=== PATIENT | female | born 1960 | race American Indian/Alaskan Native ===

== ENCOUNTER 2018-12-11 15:16 | Emergency (ER) | payer OTHER, SELFPAY ==
[2018-12-11 15:18] VITALS: BP 138/59; PULSE 70; RESP 18; TEMP 36.4; O2SAT 100; BMI 38.0
--- NOTE | 2018-12-11 15:21 | ED.CHESTPAIN ---
HPI - Chest Pain General Chief Complaint: Chest Pain Stated Complaint: chest pain Time Seen by Provider: 12/11/18 15:20 Source: patient Mode of arrival: EMS Limitations: no limitations History of Present Illness HPI narrative: Patient is a 58-year-old female here for evaluation of chest discomfort. Patient states that she has a history of reflux and also hiatal hernia and also Perez's esophagus. She is on a PPI. She has Zofran and a GI cocktail at home. She states that she has had quite a bit of anxiety recently. She states that that in the past has irritated her symptoms. She states that her symptoms today are consistent with her prior GI symptoms. She stated the Zofran and the GI cocktail improved her symptoms at home however she was feeling very anxious so she called 911 and brought her into the emergency depart no prior interventions except for an EKG for the symptoms prior to arrival. Related Data Home Medications Medication Instructions Recorded Confirmed albuterol sulfate [Ventolin HFA] 2 puff INH PRN #0 04/11/11 [QVAR AER HFA] 1 puff INH BID #0 12/04/16 [VITAMIN D3] 1,000 units PO QDAY #0 12/04/16 albuterol sulfate [Proventil HFA] 2 puff INH Q4H #0 12/04/16 gabapentin [Neurontin] 300 mg PO QDAY #0 12/04/16 loratadine 10 mg PO QDAY #0 12/04/16 nortriptyline 10 mg PO QDAY #0 12/04/16 ranitidine HCl [Zantac] 150 mg PO QDAY #0 12/04/16 Previous Rx's Medication Instructions Recorded oseltamivir [Tamiflu] 75 mg PO BID #10 cap 12/04/16 prednisone 0 PO QDAY #7 tab 12/04/16 diphenhydramine HCl [Benadryl 25 mg PO Q6HP PRN #30 tab 08/30/17 Allergy] nitrofurantoin monohyd/m-cryst 100 mg PO BID #10 cap 10/02/17 [Macrobid] phenazopyridine [Pyridium] 100 mg PO TID #12 tab 10/02/17 hydrocortisone acetate [Anusol-HC] 25 mg R BID PRN #14 supp 02/05/18 Allergies Allergy/AdvReac Type Severity Reaction Status Date / Time adhesive tape [ADHESIVE TAPE] Allergy Mild latex tape Unverified 03/03/18 11:58 codeine Allergy Mild Unverified 03/03/18 11:58 barium iodide [BARIUM IODIDE] Allergy Unknown GI ISSUES Unverified 03/03/18 11:58 latex [LATEX] Allergy Unknown Unverified 03/03/18 11:58 NSAIDS (Non-Steroidal Allergy Unknown Unverified 03/03/18 11:58 Anti-Inflamma [NSAIDS (NON-STEROIDAL ANTI-INFLAMMA] Review of Systems Constitutional Denies fever(s) Cardiovascular Reports chest pain and Denies dyspnea Respiratory Denies dyspnea Gastrointestinal Gastrointestinal: Reports abdominal pain, Reports diarrhea, Reports nausea and Reports vomiting Genitourinary Denies dysuria Musculoskeletal Denies myalgias and Denies arthralgias Integumentary/Breasts Denies lesions and Denies rash Neurologic Denies behavioral changes Psychiatric Reports anxiety and Denies behavioral changes Hematologic/Lymphatic Comments: Not on anticoagulation FOR[facility]LY [facility] Medical History Barretts esophagus (Acute) Gastroparesis (Acute) Hiatal hernia (Acute) Surgical History History of third molar tooth extraction Status post hernia repair Status post laparoscopic cholecystectomy Status post laparoscopic supracervical hysterectomy Social History Smoking Status: Former smoker Exam Initial Vital Signs Initial Vital Signs: Vital Signs Temperature 97.5 F L 12/11/18 15:18 Pulse Rate 70 12/11/18 15:18 Respiratory Rate 18 12/11/18 15:18 Blood Pressure 138/59 L 12/11/18 15:18 Pulse Oximetry 100 12/11/18 15:18 Const General: cooperative, healthy appearing, comfortable, well developed, well groomed and No acute distress Orientation: alert, awake and oriented x3 Resp Effort & Inspection: normal respiratory effort Auscultation: clear to auscultation bilaterally Cardio Rate: regular rate Rhythm: regular rhythm GI Inspection: non-distended Palpation: soft, No firm and No tender Skin Lesions: no lesions Rashes: no rashes Neuro General: alert, awake and oriented x3 Extrem General: normal to inspection and capillary refill normal Psych Appearance: grossly normal and well kempt Course Orders Ordered: ED Orders 12/11/18 15:21 EKG-12 Lead Stat 12/11/18 15:35 Complete Blood Count AUTO DIFF Stat Comprehensive Metabolic Panel Stat Lipase Stat Partial Thromboplastin Time Stat Prothrombin Time INR Stat Troponin & CK Cardiac Panel Stat 12/11/18 15:41 XR chest 1V Stat EKG-12 Lead Stat Vital Signs - 8 hr 12/11/18 15:18 12/11/18 16:00 Temperature 97.5 F L Pulse Rate 70 65 Respiratory Rate 18 21 Blood Pressure 138/59 L Blood Pressure [Left Arm] 133/57 L Pulse Oximetry 100 97 MDM - Chest Pain Lab Data Attestation: I reviewed the patient's lab results. Result diagrams: 12/11/18 15:35 12/11/18 15:35 Lab Results 12/11/18 12/11/18 12/11/18 Range/Units 15:35 15:35 15:35 WBC 7.3 (4.5-11.0) X10^3/uL RBC 4.95 (4.0-5.2) X10^6/uL Hgb 14.3 (12.0-16.0) g/dL Hct 42.5 (36-46) % MCV 85.9 (80-100) fL MCH 29.0 (26-34) PG MCHC 33.7 (30-36) % RDW 12.9 (11.6-14.8) % Plt Count 223 (150-400) X10^3/uL Neut % (Auto) 79.1 H (50-75) % Lymph % (Auto) 12.9 L (25-40) % Coal % (Auto) 6.6 (3-14) % Eos % (Auto) 0.8 L (2-4) % Baso % (Auto) 0.6 (0-2) % Neut # (Auto) 5700 (1217-8007) /uL Lymph # (Auto) 900 L (4101-5574) /uL Coal # (Auto) 500 (0-900) /uL Eos # (Auto) 100 (0-450) /uL Baso # (Auto) 0 (0-100) /uL PT 10.9 (10.1-12.7) SECONDS INR 0.9 (0.9-1.3) APTT 33 (26.4-36.2) SECONDS Sodium 143 (137-145) mmol/L Potassium 3.3 L (3.4-5.1) mmol/L Chloride 106 (98-107) mmol/L Carbon Dioxide 27 (22-32) mmol/L BUN 10 (7-17) mg/dL Creatinine 0.80 (0.52-1.04) mg/dL Estimated GFR > 60.0 (>60) mL/min BUN/Creatinine Ratio 12.5 (6-22) Glucose 113 H (70-100) mg/dL Calcium 9.1 (8.4-10.2) mg/dL Total Bilirubin 0.4 (0.2-1.3) mg/dL AST 20 (14-36) IU/L ALT 20 (9-52) IU/L Alkaline Phosphatase 100 (38-126) U/L Total Creatine Kinase 56 (30-135) U/L CK-MB (CK-2) TNP CK-MB (CK-2) Rel Index TNP Troponin I < 0.012 (0.01-0.034) ng/mL Total Protein 7.8 (6.3-8.2) g/dL Albumin 4.3 (3.5-5.0) g/dL Globulin 3.5 (1.7-4.1) g/dL Albumin/Globulin Ratio 1.2 (1.0-2.8) Lipase 178 (23-300) U/L Urine Dip Bedside Urine Glucose Negative Bedside Urine Bilirubin - Negative Bedside Urine Ketone - Negative Urine Specific [place] 1.010 Bedside Urine Occult Blood - Negative Bedside Urine pH 6.0 Bedside Urine Protein - Negative Bedside Urine Urobilinogen - Negative Bedside Urine Nitrite - Negative Bedside Urine Leukocytes - Negative Esterase Imaging Data Chest x-ray: Radiologist's impression: PROCEDURE: XR CHEST 1V INDICATIONS: chest pain TECHNIQUE: One view of the chest was acquired. COMPARISON: None. FINDINGS: Surgical changes and devices: None. Lungs and pleura: No pleural effusions or pneumothorax. Lungs are clear. Mediastinum: Mediastinal contours appear normal. Heart size is normal. Bones and chest wall: No suspicious bony lesions. Overlying soft tissues appear unremarkable. IMPRESSION: No acute cardiopulmonary findings. Dictated by: Kayla Ledbetter M.D. on 12/11/2018 at 15:56 Approved by: Kayla Ledbetter M.D. on 12/11/2018 at 15:57 ECG Data Attestation: I personally reviewed and interpreted this ECG as follows: Prior ECG tracings: available for review Interpretation: EMS EKG shows sinus rhythm heart rate is 77 normal axis Normal QRS No ST T wave changes Sinus rhythm Ventricular rate is 70 Normal axis Normal QRS No ST T wave changes Unchanged from pre-hospital EKG MDM Narrative Medical decision making narrative: Patient without vomiting here in the emergency department. She states her symptoms have improved. Labs unremarkable. Low suspicion for ACS. She does have nausea medication and a GI cocktail at home. She was given return precautions. Will hold on further workup for now. Patient was given return precautions. She expressed understanding and agreement with plan. Discharge Plan Departure Patient Disposition: Home Clinical Impression: Nausea & vomiting Instructions: Nausea and Vomiting-Adult Activity Restrictions/Additional Instructions: Continue all your medications as directed. Contact your primary care doctor for a follow-up. Return to the emergency department for any new or worsening symptoms Prescriptions: No Action albuterol sulfate [Ventolin HFA] 90 MCG/PUFF HFA aerosol inhaler 2 puff INH PRN Qty: 0 RF: 0 ranitidine HCl [Zantac] 150 MG tablet 150 mg PO QDAY Qty: 0 RF: 0 [VITAMIN D3] 1,000 units PO QDAY Qty: 0 RF: 0 nortriptyline 10 MG capsule 10 mg PO QDAY Qty: 0 RF: 0 gabapentin [Neurontin] 300 MG capsule 300 mg PO QDAY Qty: 0 RF: 0 loratadine 10 MG tablet 10 mg PO QDAY Qty: 0 RF: 0 albuterol sulfate [Proventil HFA] 90 MCG/PUFF HFA aerosol inhaler 2 puff INH Q4H Qty: 0 RF: 0 [QVAR AER HFA] 1 puff INH BID Qty: 0 RF: 0 oseltamivir [Tamiflu] 75 MG capsule 75 mg PO BID Qty: 10 RF: 0 prednisone 20 MG tablet PO QDAY Qty: 7 RF: 0 diphenhydramine HCl [Benadryl Allergy] 25 MG tablet 25 mg PO Q6HP PRNQty: 30 RF: 0 phenazopyridine [Pyridium] 100 MG tablet 100 mg PO TID Qty: 12 RF: 0 nitrofurantoin monohyd/m-cryst [Macrobid] 100 MG capsule 100 mg PO BID Qty: 10 RF: 0 hydrocortisone acetate [Anusol-HC] 25 MG suppository 25 mg R BID PRNQty: 14 RF: 0
--- NOTE | 2018-12-11 15:41 | DI.RAD.S_ITS ---
PROCEDURE: XR CHEST 1V INDICATIONS: chest pain TECHNIQUE: One view of the chest was acquired. COMPARISON: None. FINDINGS: Surgical changes and devices: None. Lungs and pleura: No pleural effusions or pneumothorax. Lungs are clear. Mediastinum: Mediastinal contours appear normal. Heart size is normal. Bones and chest wall: No suspicious bony lesions. Overlying soft tissues appear unremarkable. IMPRESSION: No acute cardiopulmonary findings. Dictated by: Kayla Ledbetter M.D. on 12/11/2018 at 15:56 Approved by: Kayla Ledbetter M.D. on 12/11/2018 at 15:57
[2018-12-11 15:49] LABS: Add Manual Diff / Slide Review NO; Basophils Absolute Auto 0 /uL (0-100); Basophils Percent Auto 0.6 % (0-2); Eosinophils Absolute Auto 100 /uL (0-450); Eosinophils Percent Auto 0.8 % (2-4); Hematocrit 42.5 % (36-46); Hemoglobin 14.3 g/dL (12.0-16.0); Lymphocytes Absolute Auto 900 /uL (1100-4500); Lymphocytes Percent Auto 12.9 % (25-40); Mean Corpuscular HGB Conc 33.7 % (30-36); Mean Corpuscular Volume 85.9 fL (80-100); Monocytes Absolute Auto 500 /uL (0-900); Monocytes Percent Auto 6.6 % (3-14); Neutrophils Absolute Auto 5700 /uL (1500-7000); Neutrophils Percent Auto 79.1 % (50-75); Platelet Count 223 X10^3/uL (150-400); Red Blood Cell Count 4.95 X10^6/uL (4.0-5.2); Red Cell Distribution Width 12.9 % (11.6-14.8); White Blood Cell Count 7.3 X10^3/uL (4.5-11.0)
[2018-12-11 15:50] LABS: INR 0.9 (0.9-1.3); Prothrombin Time 10.9 SECONDS (10.1-12.7)
[2018-12-11 15:52] LABS: PTT Partial Thromboplastin Tim 33 SECONDS (26.4-36.2)
[2018-12-11 15:55] LABS: Alanine Aminotransferase 20 IU/L (9-52); Albumin 4.3 g/dL (3.5-5.0); Albumin Globulin Ratio 1.2 (1.0-2.8); Alkaline Phosphatase 100 U/L (38-126); Aspartate Aminotransferase 20 IU/L (14-36); BUN Creatinine Ratio 12.5 (6-22); Bilirubin Total 0.4 mg/dL (0.2-1.3); Blood Urea Nitrogen 10 mg/dL (7-17); Calcium 9.1 mg/dL (8.4-10.2); Carbon Dioxide 27 mmol/L (22-32); Chloride 106 mmol/L (98-107); Creatine Kinase 56 U/L (30-135); Estimated Glomerular Filt Rate > 60.0 mL/min (>60); Globulin 3.5 g/dL (1.7-4.1); Glucose 113 mg/dL (70-100); HEMOLYSIS < 15 (0-50); Lipase 178 U/L (23-300); Potassium 3.3 mmol/L (3.4-5.1); Sodium 143 mmol/L (137-145); Total Protein 7.8 g/dL (6.3-8.2)
[2018-12-11 16:00] VITALS: BP 133/57; PULSE 65; RESP 21; O2SAT 97
[2018-12-11 16:07] LABS: Troponin I < 0.012 ng/mL (0.01-0.034)
[2018-12-11 17:56] VITALS: BP 119/57; PULSE 62; RESP 25; O2SAT 96
== END 2018-12-11 18:02 | disposition home or self-care (01) ==
PROVIDERS: Emergency Provider Emergency Medicine; Family Provider Physician Assistant; PCP Physician Assistant
DX: R11.2 Nausea with vomiting, unspecified (principal)
CPT/HCPCS: 36591; 71045; 80053; 81003; 82550; 83690; 84484; 85025; 85610; 85730; 93005; 99283; 99285

== ENCOUNTER 2018-12-27 16:23 | Emergency (ER) | payer OTHER, SELFPAY ==
--- NOTE | 2018-12-27 16:29 | ED_ITS ---
HPI - Abdominal Pain <HARPREET Juan - Last Filed: 12/27/18 22:04> General Chief Complaint: Chest Pain Stated Complaint: Back Px/ ABD Px/ Vomiting/ Diarhea Time Seen by Provider: 12/27/18 16:27 Source: patient and EMS Mode of arrival: EMS Limitations: no limitations History of Present Illness HPI narrative: 58-year-old female with history of irritable bowel and Perez's esophagus here for complaint of having abdominal pain mostly to the left lower quadrant radiating to the rate upper quadrant over the past several days. She also reports that she has had some diarrhea over the past 3 days. She does report that she has been in a stressful environment and is trying to move out at this contact time frame. She also feels like she may have been having urinary frequency. No dysuria. No flank pain. No fevers. Positive p.o. intake. No nausea vomiting. She denies any recent travel. She denies any recent antibiotic use. She is also reports having occasional chest pain which she had at last visit as well. No shortness of breath. Related Data Home Medications Medication Instructions Recorded Confirmed loratadine 10 mg PO DAILY #0 12/04/16 12/27/18 Lidocaine/Antacid/ 1 dose PO QID PRN 12/27/18 12/27/18 Tums 1 tab PO PRN PRN 12/27/18 12/27/18 azelastine 1 spray INTRANASAL DAILY 12/27/18 12/27/18 buspirone 7.5 mg PO BID 12/27/18 12/27/18 diphenhydramine HCl [Benadryl 25 mg PO BEDTIME PRN 12/27/18 12/27/18 Allergy] hydroxyzine pamoate 50 mg PO BEDTIME PRN 12/27/18 12/27/18 ondansetron 4 mg PO PRN PRN 12/27/18 12/27/18 pantoprazole 40 mg PO BID 12/27/18 12/27/18 pregabalin [Lyrica] 50 mg PO TID 12/27/18 12/27/18 propranolol 10 mg PO BID 12/27/18 12/27/18 sucralfate 1 dose PO BIDAC 12/27/18 12/27/18 Previous Rx's Medication Instructions Recorded ondansetron 4 mg PO BID-TID PRN #10 tab 12/27/18 Allergies Allergy/AdvReac Type Severity Reaction Status Date / Time adhesive tape [ADHESIVE TAPE] Allergy Mild latex tape Unverified 03/03/18 11:58 codeine Allergy Mild Unverified 03/03/18 11:58 barium iodide [BARIUM IODIDE] Allergy Unknown GI ISSUES Unverified 03/03/18 11: 58 latex [LATEX] Allergy Unknown Unverified 03/03/18 11:58 NSAIDS (Non-Steroidal Allergy Unknown Unverified 03/03/18 11:58 Anti-Inflamma [NSAIDS (NON-STEROIDAL ANTI-INFLAMMA] Review of Systems <HARPREET Juan - Last Filed: 12/27/18 22:04> Constitutional Denies chills, Denies fatigue, Denies fever(s), Denies lethargy and Denies weakness Eyes Denies change in vision, Denies eye discharge, Denies irritation and Denies loss of vision ENT Ears, Nose, Mouth, and Throat: Denies change in voice, Denies neck pain and Denies sore throat Cardiovascular Reports chest pain, Denies dyspnea and Denies dyspnea on exertion Respiratory Denies cough, Denies dyspnea, Denies dyspnea on exertion and Denies wheezing Gastrointestinal Gastrointestinal: Reports abdominal pain, Denies change in bowel habits, Reports diarrhea, Denies nausea and Denies vomiting Genitourinary Comments: Increased urinary frequency Musculoskeletal Denies neck pain Integumentary/Breasts Denies pruritus, Denies erythema, Denies rash and Denies wounds Neurologic Denies loss of vision and Denies weakness Endocrine Denies fatigue and Denies flushing Allergic/Immunologic Denies wheezing Exam <HARPREET Juan - Last Filed: 12/27/18 22:04> Initial Vital Signs Initial Vital Signs: Vital Signs Temperature 98.7 F 12/27/18 16:38 Pulse Rate 71 12/27/18 16:38 Respiratory Rate 18 12/27/18 16:38 Blood Pressure 102/47 L 12/27/18 16:38 Pulse Oximetry 98 12/27/18 16:38 Const General: cooperative and well developed Nutritional Appearance: well nourished Orientation: alert, awake, oriented x3 and not confused HENMT Face and sinus: dry mucous membranes Mouth: oral mucosae normal, oropharynx normal and moist mucous membranes Eyes Conjunctivae: conjunctivae normal Sclera: sclerae normal Pupils: PERRL EOM: EOM intact bilaterally Resp Effort & Inspection: normal respiratory effort, able to speak in complete sentences, no respiratory distress and no use of accessory muscles Auscultation: clear to auscultation bilaterally, no rales, no rhonchi and no wheezes Cardio Rate: regular rate Rhythm: regular rhythm Heart Sounds: no click, no gallops, no murmurs and no rubs GI Inspection: non-distended Palpation: soft, no hepatosplenomegaly, No guarding, No pulsatile mass and tender (Left lower quadrant) Auscultation: normal bowel sounds General: No CVA tenderness Skin General: no rashes or lesions noted, No jaundice and No petechiae Neuro General: alert, oriented x3, gait normal and no focal motor deficits Speech: speech normal <Maritza Ayala DO - Last Filed: 12/27/18 23:32> Initial Vital Signs Initial Vital Signs: Vital Signs Temperature 98.7 F 12/27/18 16:38 Pulse Rate 71 12/27/18 16:38 Respiratory Rate 18 12/27/18 16:38 Blood Pressure 102/47 L 12/27/18 16:38 Pulse Oximetry 98 12/27/18 16:38 Course <HARPREET Juan - Last Filed: 12/27/18 22:04> Orders Ordered: ED Orders 12/27/18 17:28 XR chest 1V Stat 12/27/18 17:50 Complete Blood Count AUTO DIFF Stat Comprehensive Metabolic Panel Stat Lipase Stat Troponin & CK Cardiac Panel Stat 12/27/18 18:49 CT abdomen pelvis w con Stat Discontinued Medications Sodium Chloride (Normal Saline 0.9%) 1,000 mls @ 150 mls/hr IV CONT GRISELDA Last Infusion: 12/27/18 20:48 Dose: 0 mls/hr Admin: 12/27/18 18:21 Dose: 150 mls/hr Lorazepam (Ativan) 1 mg IV NOW ONE Stop: 12/27/18 18:25 Last Admin: 12/27/18 18:56 Dose: 1 mg Ondansetron HCl (Zofran) 4 mg IV NOW ONE Stop: 12/27/18 18:25 Last Admin: 12/27/18 18:56 Dose: 4 mg Vital Signs - 8 hr 12/27/18 16:38 12/27/18 18:50 12/27/18 18:57 Temperature 98.7 F Pulse Rate 71 71 64 Respiratory Rate 18 27 H 20 Blood Pressure 102/47 L Blood Pressure [Left Arm] 87/55 L 137/60 Pulse Oximetry 98 100 12/27/18 20:06 12/27/18 20:48 Temperature Pulse Rate 57 L 66 Respiratory Rate 20 18 Blood Pressure Blood Pressure [Left Arm] 126/52 L 121/56 L Pulse Oximetry 98 <Maritza Ayala DO - Last Filed: 12/27/18 23:32> Orders Ordered: ED Orders 12/27/18 17:28 XR chest 1V Stat 12/27/18 17:50 Complete Blood Count AUTO DIFF Stat Comprehensive Metabolic Panel Stat Lipase Stat Troponin & CK Cardiac Panel Stat 12/27/18 18:49 CT abdomen pelvis w con Stat Discontinued Medications Sodium Chloride (Normal Saline 0.9%) 1,000 mls @ 150 mls/hr IV CONT GRISELDA Last Infusion: 12/27/18 20:48 Dose: 0 mls/hr Admin: 12/27/18 18:21 Dose: 150 mls/hr Lorazepam (Ativan) 1 mg IV NOW ONE Stop: 12/27/18 18:25 Last Admin: 12/27/18 18:56 Dose: 1 mg Ondansetron HCl (Zofran) 4 mg IV NOW ONE Stop: 12/27/18 18:25 Last Admin: 12/27/18 18:56 Dose: 4 mg Vital Signs - 8 hr 12/27/18 16:38 12/27/18 18:50 12/27/18 18:57 Temperature 98.7 F Pulse Rate 71 71 64 Respiratory Rate 18 27 H 20 Blood Pressure 102/47 L Blood Pressure [Left Arm] 87/55 L 137/60 Pulse Oximetry 98 100 12/27/18 20:06 12/27/18 20:48 Temperature Pulse Rate 57 L 66 Respiratory Rate 20 18 Blood Pressure Blood Pressure [Left Arm] 126/52 L 121/56 L Pulse Oximetry 98 MDM - Abdominal Pain <HARPREET Juan - Last Filed: 12/27/18 22:04> Lab Data Result diagrams: 12/27/18 17:50 12/27/18 17:50 Lab Results 12/27/18 12/27/18 Range/Units 17:50 17:50 WBC 9.0 (4.5-11.0) X10^3/uL RBC 4.79 (4.0-5.2) X10^6/uL Hgb 14.0 (12.0-16.0) g/dL Hct 41.3 (36-46) % MCV 86.3 (80-100) fL MCH 29.2 (26-34) PG MCHC 33.8 (30-36) % RDW 13.1 (11.6-14.8) % Plt Count 230 (150-400) X10^3/uL Neut % (Auto) 81.8 H (50-75) % Lymph % (Auto) 12.0 L (25-40) % [place] % (Auto) 5.4 (3-14) % Eos % (Auto) 0.5 L (2-4) % Baso % (Auto) 0.3 (0-2) % Neut # (Auto) 7400 H (8328-2618) /uL Lymph # (Auto) 1100 (3986-8022) /uL Harrison # (Auto) 500 (0-900) /uL Eos # (Auto) 0 (0-450) /uL Baso # (Auto) 0 (0-100) /uL Sodium 141 (137-145) mmol/L Potassium 3.5 (3.4-5.1) mmol/L Chloride 106 (98-107) mmol/L Carbon Dioxide 29 (22-32) mmol/L BUN 11 (7-17) mg/dL Creatinine 0.70 (0.52-1.04) mg/dL Estimated GFR > 60.0 (>60) mL/min BUN/Creatinine Ratio 15.7 (6-22) Glucose 110 H (70-100) mg/dL Calcium 9.1 (8.4-10.2) mg/dL Total Bilirubin 0.5 (0.2-1.3) mg/dL AST 21 (14-36) IU/L ALT 26 (9-52) IU/L Alkaline Phosphatase 105 (38-126) U/L Total Creatine Kinase 35 (30-135) U/L CK-MB (CK-2) TNP CK-MB (CK-2) Rel Index TNP Troponin I < 0.012 (0.01-0.034) ng/mL Total Protein 7.4 (6.3-8.2) g/dL Albumin 4.0 (3.5-5.0) g/dL Globulin 3.4 (1.7-4.1) g/dL Albumin/Globulin Ratio 1.2 (1.0-2.8) Lipase 220 (23-300) U/L Point of care testing: Urine Dip Bedside Urine Glucose Negative Bedside Urine Bilirubin - Negative Bedside Urine Ketone - Negative Urine Specific [place] 1.010 Bedside Urine Occult Blood - Negative Bedside Urine pH 6.0 Bedside Urine Protein - Negative Bedside Urine Urobilinogen - Negative Bedside Urine Nitrite - Negative Bedside Urine Leukocytes - Negative Esterase Imaging Data CT scan - abdomen: Radiologist's impression: [address] [address] [address] Scan Report Signed Patient: Riley Monique CMR#: [id number] : 1960Acct:[id number] Age/Sex: 58 / FDate of Service: 12/27/18 Loc: ED Accession Number: [id number] Procedure: CT abdomen pelvis w con Ordering Provider: Jamison Ferrer PROCEDURE: CT ABDOMEN PELVIS W CON INDICATIONS: Abdominal pain to left lower quadrant radiates to right uppe TECHNIQUE: After the administration of intravenous contrast, 5 mm thick sections acquired from the diaphragm to the symphysis. 5 mm coronal and sagittal reformats were acquired. For radiation dose reduction, the following was used: automated exposure control, adjustment of mA and/or kV according to patient size. COMPARISON: [facility], CT, ABDOMEN/PELVIS WITH CONTRAST, 11/14/2013, 8: 48. FINDINGS: Image quality: Excellent. ABDOMEN: Lung bases: Mild bibasilar dependent atelectasis is seen. Heart size is normal. Solid organs: Liver is normal in size. 6 and 8mm hypodensities are seen in posterior aspect of right hepatic lobe near hepatic dome, and are too small to characterize. Gallbladder is surgically absent. Biliary system is non dilated. Pancreas enhances normally. Spleen is normal in size and enhancement. No adrenal nodules. Kidneys demonstrate normal size and enhancement, without hydronephrosis. Peritoneum and bowel: There is no evidence of bowel obstruction. No gastric or small bowel wall thickening. There is diffuse descending colon and sigmoid colon wall thickening with mild narrowing of the lumen. No significant pericolonic fat stranding. No free fluid or free air. Appendix is seen in right lower abdomen is within normal limits. Small hiatal hernia is seen. Nodes and vessels: No retroperitoneal or mesenteric adenopathy by size criteria. Aorta and inferior vena cava are normal in size. Miscellaneous: Patient is status post prior ventral hernia repair with post surgical changes. PELVIS: Genitourinary: Bladder wall thickness is normal. Miscellaneous: No inguinal hernias or adenopathy. Bones: No suspicious bony lesions. No vertebral body compression fractures. IMPRESSION: 1. Mild diffuse descending colon and sigmoid colon wall thickening with mild narrowing of the lumen suggestive of infectious inflammatory colitis. No acute appendicitis or diverticulitis. No free fluid or free air. 2. 6 and 8 mm hypodensity is seen in posterior aspect of right hepatic dome, and are too small to characterize, and may represent benign process such as hemangioma or cyst. Prior cholecystectomy. Dictated by: Jose Maria Strickland M.D. on 12/27/2018 at 19:39 Approved by: Jose Maria Strickland M.D. on 12/27/2018 at 19:46 Chest x-ray: Radiologist's impression: [place] [address] XRay Report Signed Patient: Riley Monique CMR#: [id number] : 1960Acct:[id number] Age/Sex: 58 / FDate of Service: 12/27/18 Loc: ED Accession Number: [id number] Procedure: XR chest 1V Ordering Provider: Jamison Ferrer PROCEDURE: XR CHEST 1V INDICATIONS: Chest pain TECHNIQUE: One view of the chest was acquired. COMPARISON: [facility], , XR CHEST 1V, 12/11/2018, 15:43. FINDINGS: Surgical changes and devices: None. Lungs and pleura: Lungs are clear. No pleural effusions or pneumothorax. Mediastinum: Mediastinal contours appear normal. Heart size is enlarged. Bones and chest wall: No suspicious bony lesions. Overlying soft tissues appear unremarkable. IMPRESSION: No acute pulmonary pathology. Dictated by: Jose Maria Strickland M.D. on 12/27/2018 at 18:09 Approved by: Jose Maria Strickland M.D. on 12/27/2018 at 18:09 ECG Data Interpretation: EKG shows sinus rhythm with no ST elevation or depression. No ectopy. Ventricular rate is 71. Pr interval 148. QRS duration 98. QTC 386. MDM Narrative Medical decision making narrative: CBC was obtained And wasunremarkable. CMP was obtained was also unremarkable. Lipase was normal. Cardiac enzymes were obtained were unremarkable. EKG shows sinus rhythm with no ST elevation or depression. No ectopy. Chest x-ray was obtained was negative for any acute findings. CT of the abdomen shows finding consistent with mild colitis. For will treat with supportive care for viral illness at this point. Differential of findings due to IBS. Zofran as needed for any nausea. Plenty of fluids. Other differential is anxiety may be causing her issues due to increased stress. She was given Ativan in the emergency room which helped her relax and she stated she felt better. Follow-up with Gastroenterology. Follow up with primary care provider. Return emergency room for worsening symptoms. <Maritza Ayala, - Last Filed: 12/27/18 23:32> Lab Data Lab Results 12/27/18 12/27/18 Range/Units 17:50 17:50 WBC 9.0 (4.5-11.0) X10^3/uL RBC 4.79 (4.0-5.2) X10^6/uL Hgb 14.0 (12.0-16.0) g/dL Hct 41.3 (36-46) % MCV 86.3 (80-100) fL MCH 29.2 (26-34) PG MCHC 33.8 (30-36) % RDW 13.1 (11.6-14.8) % Plt Count 230 (150-400) X10^3/uL Neut % (Auto) 81.8 H (50-75) % Lymph % (Auto) 12.0 L (25-40) % Harrison % (Auto) 5.4 (3-14) % Eos % (Auto) 0.5 L (2-4) % Baso % (Auto) 0.3 (0-2) % Neut # (Auto) 7400 H (5028-0943) /uL Lymph # (Auto) 1100 (0561-9729) /uL Harrison # (Auto) 500 (0-900) /uL Eos # (Auto) 0 (0-450) /uL Baso # (Auto) 0 (0-100) /uL Sodium 141 (137-145) mmol/L Potassium 3.5 (3.4-5.1) mmol/L Chloride 106 (98-107) mmol/L Carbon Dioxide 29 (22-32) mmol/L BUN 11 (7-17) mg/dL Creatinine 0.70 (0.52-1.04) mg/dL Estimated GFR > 60.0 (>60) mL/min BUN/Creatinine Ratio 15.7 (6-22) Glucose 110 H (70-100) mg/dL Calcium 9.1 (8.4-10.2) mg/dL Total Bilirubin 0.5 (0.2-1.3) mg/dL AST 21 (14-36) IU/L ALT 26 (9-52) IU/L Alkaline Phosphatase 105 (38-126) U/L Total Creatine Kinase 35 (30-135) U/L CK-MB (CK-2) TNP CK-MB (CK-2) Rel Index TNP Troponin I < 0.012 (0.01-0.034) ng/mL Total Protein 7.4 (6.3-8.2) g/dL Albumin 4.0 (3.5-5.0) g/dL Globulin 3.4 (1.7-4.1) g/dL Albumin/Globulin Ratio 1.2 (1.0-2.8) Lipase 220 (23-300) U/L Point of care testing: Urine Dip Bedside Urine Glucose Negative Bedside Urine Bilirubin - Negative Bedside Urine Ketone - Negative Urine Specific [place] 1.010 Bedside Urine Occult Blood - Negative Bedside Urine pH 6.0 Bedside Urine Protein - Negative Bedside Urine Urobilinogen - Negative Bedside Urine Nitrite - Negative Bedside Urine Leukocytes - Negative Esterase ECG Data Attestation: I personally reviewed and interpreted this ECG as follows: Prior ECG tracings: available for review Interpretation: Normal sinus rhythm rate [address] changes or T-wave inversions GA interval 148 and QTC 396 similar to previous EKG Discharge Plan Departure Patient Disposition: Home Clinical Impression: Abdominal pain Discharge Date/Time: 12/27/18 20:56 Interventions: ED Discharge Assessment Last Done: 12/27/18 20:49 Instructions: Acute Abdominal Pain Activity Restrictions/Additional Instructions: Laboratory results today were obtained were unremarkable. Cardiac enzymes and chest x-ray and EKG were normal. Urinalysis was negative for urinary tract infection CT of the abdomen shows mild inflammation into the colon area which is presents as other viral in nature or due to ibs. Use currently prescribed medications as directed. May use Zofran to help with any nausea. Plenty of fluids. Follow up with her primary care provider for a follow-up with Gastroenterology. For any worsening symptoms return emergency room. Prescriptions: New ondansetron 4 mg tablet,disintegrating 4 mg PO BID-TID PRN (Reason: nausea and vomiting) Qty: 10 RF: 0 No Action loratadine 10 MG tablet 10 mg PO DAILY Qty: 0 RF: 0 sucralfate 100 mg/mL Suspension 1 dose PO BIDAC RF: 0 hydroxyzine pamoate 50 mg Capsule 50 mg PO BEDTIME PRN (Reason: Anxiety) RF: 0 pantoprazole 40 mg Tablet,Delayed Release (Dr/Ec) 40 mg PO BID RF: 0 buspirone 7.5 mg Tablet 7.5 mg PO BID RF: 0 azelastine 137 mcg (0.1 %) Aerosol,[place] 1 spray INTRANASAL DAILY RF: 0 propranolol 20 mg Tablet 10 mg PO BID RF: 0 ondansetron 4 mg Tablet,Disintegrating 4 mg PO PRN PRN (Reason: Nausea And Vomiting) RF: 0 pregabalin [Lyrica] 50 mg Capsule 50 mg PO TID RF: 0 Lidocaine/Antacid/ 1 dose PO QID PRN (Reason: Indigestion) RF: 0 Tums 1 tab PO PRN PRN (Reason: Indigestion) RF: 0 diphenhydramine HCl [Benadryl Allergy] 25 MG tablet 25 mg PO BEDTIME PRN (Reason: Sleep) RF: 0 Referrals: Beena Calhoun PA-C [Primary Care Provider] - <Maritza Ayala DO - Last Filed: 12/27/18 23:32> [facility] ED Attending Jeane Attestation: I was immediately available in the department for consultation. Documentation has been reviewed. I agree with assessment and plan.
[2018-12-27 16:38] VITALS: BP 102/47; PULSE 71; RESP 18; TEMP 37.1; O2SAT 98; BMI 38.2
--- NOTE | 2018-12-27 16:44 | PC.NURSE ---
Patient has long history of reflux and is scheduled for a procedure POEM with cuban to help her symptoms. Patient had minimal to no relief with carafate, zofran, GI cocktail,tums, benedryl. Patient under significant amount of stress with current living situation. Offered manager social responsibility to patient. Patient reports having police involved with her current situation and is working on getting into a safe living environment
--- NOTE | 2018-12-27 17:28 | DI.RAD.S_ITS ---
PROCEDURE: XR CHEST 1V INDICATIONS: Chest pain TECHNIQUE: One view of the chest was acquired. COMPARISON: [facility], CR, XR CHEST 1V, 12/11/2018, 15:43. FINDINGS: Surgical changes and devices: None. Lungs and pleura: Lungs are clear. No pleural effusions or pneumothorax. Mediastinum: Mediastinal contours appear normal. Heart size is enlarged. Bones and chest wall: No suspicious bony lesions. Overlying soft tissues appear unremarkable. IMPRESSION: No acute pulmonary pathology. Dictated by: Jose Maria Strickland M.D. on 12/27/2018 at 18:09 Approved by: Jose Maria Strickland M.D. on 12/27/2018 at 18:09
[2018-12-27 17:46] LABS: Add Manual Diff / Slide Review NO; Basophils Absolute Auto 0 /uL (0-100); Basophils Percent Auto 0.3 % (0-2); Eosinophils Absolute Auto 0 /uL (0-450); Eosinophils Percent Auto 0.5 % (2-4); Hematocrit 41.3 % (36-46); Lymphocytes Absolute Auto 1100 /uL (1100-4500); Mean Corpuscular HGB Conc 33.8 % (30-36); Mean Corpuscular Hemoglobin 29.2 PG (26-34); Mean Corpuscular Volume 86.3 fL (80-100); Monocytes Absolute Auto 500 /uL (0-900); Monocytes Percent Auto 5.4 % (3-14); Neutrophils Absolute Auto 7400 /uL (1500-7000); Neutrophils Percent Auto 81.8 % (50-75); Platelet Count 230 X10^3/uL (150-400); Red Blood Cell Count 4.79 X10^6/uL (4.0-5.2); Red Cell Distribution Width 13.1 % (11.6-14.8)
[2018-12-27 18:05] LABS: Alanine Aminotransferase 26 IU/L (9-52); Albumin Globulin Ratio 1.2 (1.0-2.8); Alkaline Phosphatase 105 U/L (38-126); Aspartate Aminotransferase 21 IU/L (14-36); BUN Creatinine Ratio 15.7 (6-22); Bilirubin Total 0.5 mg/dL (0.2-1.3); Blood Urea Nitrogen 11 mg/dL (7-17); Calcium 9.1 mg/dL (8.4-10.2); Carbon Dioxide 29 mmol/L (22-32); Chloride 106 mmol/L (98-107); Creatine Kinase 35 U/L (30-135); Estimated Glomerular Filt Rate > 60.0 mL/min (>60); Globulin 3.4 g/dL (1.7-4.1); Glucose 110 mg/dL (70-100); HEMOLYSIS 24 (0-50); Lipase 220 U/L (23-300); Potassium 3.5 mmol/L (3.4-5.1); Sodium 141 mmol/L (137-145); Total Protein 7.4 g/dL (6.3-8.2)
[2018-12-27 18:17] LABS: Troponin I < 0.012 ng/mL (0.01-0.034)
[2018-12-27] MEDS: SODIUM CHLORIDE 0.9% 1,000 ML 150 ML IV (18:21)
--- NOTE | 2018-12-27 18:49 | DI.CT.S_ITS ---
PROCEDURE: CT ABDOMEN PELVIS W CON INDICATIONS: Abdominal pain to left lower quadrant radiates to right uppe TECHNIQUE: After the administration of intravenous contrast, 5 mm thick sections acquired from the diaphragm to the symphysis. 5 mm coronal and sagittal reformats were acquired. For radiation dose reduction, the following was used: automated exposure control, adjustment of mA and/or kV according to patient size. COMPARISON: [facility], CT, ABDOMEN/PELVIS WITH CONTRAST, 11/14/2013, 8:48. FINDINGS: Image quality: Excellent. ABDOMEN: Lung bases: Mild bibasilar dependent atelectasis is seen. Heart size is normal. Solid organs: Liver is normal in size. 6 and 8mm hypodensities are seen in posterior aspect of right hepatic lobe near hepatic dome, and are too small to characterize. Gallbladder is surgically absent. Biliary system is non dilated. Pancreas enhances normally. Spleen is normal in size and enhancement. No adrenal nodules. Kidneys demonstrate normal size and enhancement, without hydronephrosis. Peritoneum and bowel: There is no evidence of bowel obstruction. No gastric or small bowel wall thickening. There is diffuse descending colon and sigmoid colon wall thickening with mild narrowing of the lumen. No significant pericolonic fat stranding. No free fluid or free air. Appendix is seen in right lower abdomen is within normal limits. Small hiatal hernia is seen. Nodes and vessels: No retroperitoneal or mesenteric adenopathy by size criteria. Aorta and inferior vena cava are normal in size. Miscellaneous: Patient is status post prior ventral hernia repair with post surgical changes. PELVIS: Genitourinary: Bladder wall thickness is normal. Miscellaneous: No inguinal hernias or adenopathy. Bones: No suspicious bony lesions. No vertebral body compression fractures. IMPRESSION: 1. Mild diffuse descending colon and sigmoid colon wall thickening with mild narrowing of the lumen suggestive of infectious inflammatory colitis. No acute appendicitis or diverticulitis. No free fluid or free air. 2. 6 and 8 mm hypodensity is seen in posterior aspect of right hepatic dome, and are too small to characterize, and may represent benign process such as hemangioma or cyst. Prior cholecystectomy. Dictated by: Jose Maria Strickland M.D. on 12/27/2018 at 19:39 Approved by: Jose Maria Strickland M.D. on 12/27/2018 at 19:46
[2018-12-27 18:50] VITALS: BP 87/55; PULSE 71; RESP 27
[2018-12-27] MEDS: LORazepam 2 MG/ML SYRINGE 1 MG IV (18:56)
[2018-12-27] MEDS: ONDANSETRON 4 MG/2 ML INJ IV (18:56)
[2018-12-27 18:57] VITALS: BP 137/60; PULSE 64; RESP 20; O2SAT 100
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
[2018-12-27 20:06] VITALS: BP 126/52; PULSE 57; RESP 20
[2018-12-27 20:48] VITALS: BP 121/56; PULSE 66; RESP 18; O2SAT 98
== END 2018-12-27 20:56 | disposition home or self-care (01) ==
PROVIDERS: Emergency Provider Nurse Practitioner Family; Family Provider Physician Assistant; PCP Physician Assistant
DX: R10.9 Unspecified abdominal pain (principal); R07.9 Chest pain, unspecified
CPT/HCPCS: 36591; 71045; 74177; 80053; 81003; 82550; 83690; 84484; 85025; 93005; 96361; 96374; 96375; 99284; 99285; J2060; J2405; Q9967

== ENCOUNTER 2019-02-09 13:10 | Emergency (ER) | payer OTHER, SELFPAY ==
[2019-02-09 13:27] VITALS: TEMP 36.4
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
[2019-02-09 15:44] LABS: Alanine Aminotransferase 27 IU/L (9-52)
[2019-02-09 16:21] LABS: Hepatitis B Surface Antigen NEGATIVE s/c (NEGATIVE)
[2019-02-09] MEDS: TET,DIPH,PERTUSS(ACELL),VAC/PF 0.5 ML SYRINGE IM (16:28)
[2019-02-09 16:42] LABS: HIV 1 and 2 Antibody NEGATIVE (NEGATIVE); Hep C Virus Ab w/Reflex Quant NEGATIVE s/c (NEGATIVE)
[2019-02-09 17:06] LABS: Add Manual Diff / Slide Review NO; Basophils Absolute Auto 100 /uL (0-100); Basophils Percent Auto 0.7 % (0-2); Eosinophils Absolute Auto 100 /uL (0-450); Eosinophils Percent Auto 1.1 % (2-4); Hematocrit 42.6 % (36-46); Hemoglobin 14.1 g/dL (12.0-16.0); Lymphocytes Absolute Auto 1700 /uL (1100-4500); Lymphocytes Percent Auto 23.2 % (25-40); Mean Corpuscular HGB Conc 33.1 % (30-36); Mean Corpuscular Hemoglobin 28.8 PG (26-34); Monocytes Absolute Auto 500 /uL (0-900); Monocytes Percent Auto 6.9 % (3-14); Neutrophils Absolute Auto 5000 /uL (1500-7000); Neutrophils Percent Auto 68.1 % (50-75); Platelet Count 231 X10^3/uL (150-400); Red Cell Distribution Width 13.3 % (11.6-14.8); White Blood Cell Count 7.4 X10^3/uL (4.5-11.0)
[2019-02-09 17:18] LABS: Alanine Aminotransferase 28 IU/L (9-52); Albumin 4.3 g/dL (3.5-5.0); Albumin Globulin Ratio 1.2 (1.0-2.8); Alkaline Phosphatase 99 U/L (38-126); Aspartate Aminotransferase 20 IU/L (14-36); BUN Creatinine Ratio 11.7 (6-22); Bilirubin Total 0.3 mg/dL (0.2-1.3); Blood Urea Nitrogen 7 mg/dL (7-17); Carbon Dioxide 28 mmol/L (22-32); Chloride 104 mmol/L (98-107); Estimated Glomerular Filt Rate > 60.0 mL/min (>60); Gamma Glutamyl Transpeptidase 17 U/L (12-43); Globulin 3.7 g/dL (1.7-4.1); Glucose 101 mg/dL (70-100); HEMOLYSIS < 15 (0-50); Lactate Dehydrogenase 428 U/L (313-618); Potassium 3.9 mmol/L (3.4-5.1); Sodium 142 mmol/L (137-145)
[2019-02-09 17:41] VITALS: BP 141/66; PULSE 64; RESP 16; O2SAT 99
== END 2019-02-09 17:48 | disposition home or self-care (01) ==
PROVIDERS: Emergency Provider Nurse Practitioner Family; Family Provider Physician Assistant; PCP Physician Assistant; Referring Provider Physician Assistant
DX: S91.342A Puncture wound with foreign body, left foot, initial encounter (principal); X58.XXXA Exposure to other specified factors, initial encounter
CPT/HCPCS: 36415; 80053; 82977; 83615; 84460; 85025; 86703; 86803; 87340; 99282; 99283; 90715

== ENCOUNTER 2019-03-06 14:13 | Emergency (ER) | payer OTHER, SELFPAY ==
[2019-03-06 14:15] VITALS: BP 161/85; PULSE 80; RESP 20; TEMP 36.1; O2SAT 100; BMI 38.0
--- NOTE | 2019-03-06 15:20 | DI.RAD.S_ITS ---
PROCEDURE: XR CHEST 1V INDICATIONS: chest pain TECHNIQUE: One view of the chest was acquired. COMPARISON: None. FINDINGS: Surgical changes and devices: None. Lungs and pleura: Lungs are clear. No pleural effusions or pneumothorax. Mediastinum: Mediastinal contours appear normal. Heart size is normal. Bones and chest wall: No suspicious bony lesions. Overlying soft tissues appear unremarkable. IMPRESSION: Normal for age, source of current chest pain symptoms is not seen. Dictated by: Maxime Suazo M.D. on 03/06/2019 at 16:36 Approved by: Maxime Suazo M.D. on 03/06/2019 at 16:37
[2019-03-06 15:28] LABS: Add Manual Diff / Slide Review NO; Basophils Absolute Auto 0 /uL (0-100); Basophils Percent Auto 0.3 % (0-2); Eosinophils Absolute Auto 0 /uL (0-450); Eosinophils Percent Auto 0.3 % (2-4); Hematocrit 41.5 % (36-46); Hemoglobin 14.3 g/dL (12.0-16.0); Lymphocytes Absolute Auto 1100 /uL (1100-4500); Lymphocytes Percent Auto 18.3 % (25-40); Mean Corpuscular HGB Conc 34.4 % (30-36); Mean Corpuscular Hemoglobin 29.7 PG (26-34); Mean Corpuscular Volume 86.3 fL (80-100); Monocytes Absolute Auto 400 /uL (0-900); Neutrophils Absolute Auto 4500 /uL (1500-7000); Neutrophils Percent Auto 75.1 % (50-75); Platelet Count 239 X10^3/uL (150-400); Red Blood Cell Count 4.81 X10^6/uL (4.0-5.2); Red Cell Distribution Width 13.9 % (11.6-14.8)
[2019-03-06 15:31] VITALS: BP 142/65; PULSE 69; RESP 16; O2SAT 98
--- NOTE | 2019-03-06 15:34 | ED.CHESTPAIN ---
HPI - Chest Pain General Chief Complaint: Chest Pain Stated Complaint: Chest pain Time Seen by Provider: 03/06/19 14:37 Source: patient Mode of arrival: ambulatory Limitations: no limitations History of Present Illness HPI narrative: Patient comes to the emergency department complaining of just generally not feeling well. she states the symptoms started yesterday. Patient states she has been under a lot of stress with work and family issues, and also they have been doing some renovations at her work and she has been exposed to a lot of dust and fumes. Patient states that often at the end of the work week, she feels as though she is somewhat run down and feeling well, but that she feels worse this time. She states that last night, she had pizza, she felt as though the cheese that stuck her esophagus. She states she has Perez's esophagus, this is not an uncommon problem for her. She states she felt as though she was having some reflux, and then became nauseated and vomited several times. She states she still felt sick when she went to bed last night, but that she was able to go to sleep. This morning, she woke still feeling nauseated, and has not eaten anything all day. She states that she has also felt as though her heart occasionally has palpitations. Patient also complains of stooling more frequently than usual, though she states her stools have been well formed. Patient does states she has a history of anxiety and has been feeling anxious lately. No fevers. No cough. No other complaints at this time. Patient states she has no history of cardiac issues. No shortness of breath. no DVT history. Related Data Home Medications Medication Instructions Recorded Confirmed loratadine 10 mg PO DAILY #0 12/04/16 01/25/19 Lidocaine/Antacid/ 1 dose PO QID PRN 12/27/18 01/25/19 Tums 1 tab PO PRN PRN 12/27/18 01/25/19 azelastine 1 spray INTRANASAL DAILY 12/27/18 01/25/19 buspirone 7.5 mg PO BID 12/27/18 01/25/19 diphenhydramine HCl [Benadryl 25 mg PO BEDTIME PRN 12/27/18 01/25/19 Allergy] hydroxyzine pamoate 50 mg PO BEDTIME PRN 12/27/18 01/25/19 ondansetron 4 mg PO PRN PRN 12/27/18 01/25/19 pantoprazole 40 mg PO BID 12/27/18 01/25/19 pregabalin [Lyrica] 50 mg PO TID 12/27/18 01/25/19 propranolol 10 mg PO BID 12/27/18 01/25/19 sucralfate 1 dose PO BIDAC 12/27/18 01/25/19 nifedipine 10 mg capsule 10 mg PO BID cap 01/25/19 01/25/19 Previous Rx's Medication Instructions Recorded ondansetron 4 mg PO BID-TID PRN #10 tab 12/27/18 dolutegravir 50 mg PO DAILY #14 tab 02/09/19 emtricitabine-tenofovir (TDF) 1 tab PO DAILY #14 tab 02/09/19 [Truvada] ondansetron 4 mg PO QID PRN #14 tab 03/06/19 Allergies Allergy/AdvReac Type Severity Reaction Status Date / Time adhesive tape [ADHESIVE TAPE] Allergy Mild latex tape Verified 03/06/19 16:00 codeine Allergy Mild Verified 03/06/19 16:00 barium iodide [BARIUM IODIDE] Allergy Unknown GI ISSUES Verified 03/06/19 16:00 latex [LATEX] Allergy Unknown Verified 03/06/19 16:00 NSAIDS (Non-Steroidal Allergy Unknown Verified 03/06/19 16:00 Anti-Inflamma [NSAIDS (NON-STEROIDAL ANTI-INFLAMMA] Review of Systems Constitutional Denies chills, Denies fever(s), Denies lethargy and Denies weakness Eyes Denies change in vision, Denies eye discharge, Denies irritation and Denies loss of vision ENT Ears, Nose, Mouth, and Throat: Denies change in voice, Denies neck pain and Denies sore throat Cardiovascular Reports chest pain, Denies irregular heart rhythm, Denies lightheadedness, Reports palpitations, Denies dyspnea, Denies dyspnea on exertion and Denies orthopnea Respiratory Denies cough, Denies dyspnea, Denies dyspnea on exertion and Denies wheezing Gastrointestinal Gastrointestinal: Denies abdominal pain, Denies change in bowel habits, Denies diarrhea, Reports nausea and Reports vomiting Genitourinary Denies hematuria, Denies flank pain, Denies urinary incontinence and Denies urinary urgency Musculoskeletal Denies neck pain Integumentary/Breasts Denies pruritus, Denies erythema, Denies rash and Denies wounds Neurologic Denies confusion, Denies loss of vision and Denies weakness Psychiatric Denies anxiety, Denies confusion, Denies depression, Denies homicidal ideation and Denies suicidal ideation Endocrine Reports palpitations Hematologic/Lymphatic Denies easy bruising Allergic/Immunologic Denies wheezing [facility] Medical History Obesity (BMI 30-39.9) (Chronic) Obstructive sleep apnea of adult (Chronic ~2009) Excessive daytime sleepiness (Inactive ~2009) Insomnia, unspecified (Chronic ~2009) Snoring (Inactive ~2009) Anxiety disorder (Chronic) Barretts esophagus (Chronic) Chronic post-traumatic stress disorder (PTSD) (Chronic) Gastroparesis (Chronic) Hiatal hernia (Chronic) Osteoarthritis (Chronic) Surgical History (Updated 01/25/19 @ 19:34 by HARPREET Borrero) History of third molar tooth extraction (Resolved) History of tubal ligation (Resolved) Status post hernia repair (Resolved) Status post laparoscopic cholecystectomy (Resolved) Status post laparoscopic supracervical hysterectomy (Resolved) Family History Other Bipolar disorder Depression Substance abuse Social History marital status: details: living in Post household members: none lives independently: Yes caregiver/support person: No housing: house pets and animals: Yes (2 dogs, 2 cats) occupational status: employed Smoking Status: Former smoker alcohol intake: former substance use type: does not use additional social history: clean and sober x 30 years Family History Other Bipolar disorder Depression Substance abuse Social History marital status: details: living in Post household members: none lives independently: Yes caregiver/support person: No housing: house pets and animals: Yes (2 dogs, 2 cats) occupational status: employed Smoking Status: Former smoker alcohol intake: former substance use type: does not use additional social history: clean and sober x 30 years Exam Initial Vital Signs Initial Vital Signs: Vital Signs Temperature 97.0 F L 03/06/19 14:15 Pulse Rate 80 03/06/19 14:15 Respiratory Rate 20 03/06/19 14:15 Blood Pressure 161/85 H 03/06/19 14:15 Pulse Oximetry 100 03/06/19 14:15 Const General: cooperative and well developed Nutritional Appearance: well nourished Orientation: alert, awake, oriented x3 and not confused [facility] Head: normocephalic and atraumatic Ears: external ears normal Nose: external nose normal and No nasal discharge Face and sinus: face symmetric and No dry mucous membranes Mouth: oral mucosae normal and moist mucous membranes Teeth and gingiva: dentition normal Eyes General: appearance normal, both eyes and all related structures Eyelids: eyelids normal Conjunctivae: conjunctivae normal Sclera: sclerae normal Pupils: PERRL EOM: EOM intact bilaterally Neck Neck: normal visual inspection, trachea midline, No lymphadenopathy, No midline deformity and No JVD Lymphatic: No lymphedema Chest Chest: normal inspection of the chest Resp Effort & Inspection: normal respiratory effort, able to speak in complete sentences, no respiratory distress and no use of accessory muscles Auscultation: clear to auscultation bilaterally, no rales, no rhonchi and no wheezes Cardio Rate: regular rate Rhythm: regular rhythm Heart Sounds: no click, no gallops, no murmurs and no rubs Pulses: normal peripheral pulses GI Inspection: non-distended Palpation: soft, no hepatosplenomegaly, No guarding, No pulsatile mass and No tender Back/Spine/Pelvis Back: No CVA tenderness Cervical Spine: cervical ROM normal and No pain with cervical ROM Thoracic/Lumbar Spine: thoracic and lumbar spine normal to inspection Skin General: no rashes or lesions noted, No jaundice and No petechiae Neuro General: alert, awake, oriented x3, gait normal and no focal motor deficits Speech: speech normal Extrem General: full ROM, no clubbing, cyanosis or edema, no pedal edema and no calf tenderness Psych Appearance: well kempt Mental Status: mental status grossly normal Attitude: cooperative Thought Content: normal and suicidality Judgment: judgment good Course Course Narrative: Patient was worked up with labs, EKG, and chest x-ray. She was found to be in a normal sinus rhythm on the monitor, even when she stated she felt as though she was having palpitations. Patient's workup was unremarkable. She was found to be feeling better after symptomatic treatment and observation in the emergency department. I did not find any emergent cause of the patient's symptoms. We have discussed the usual indications for return, as well as the need for follow-up with the patient's primary care physician. Patient expresses understanding. Orders Ordered: Discontinued Medications Sodium Chloride (Normal Saline 0.9%) 1,000 mls @ 150 mls/hr IV CONT GRISELDA Last Infusion: 03/06/19 17:14 Dose: 150 mls/hr Infusion: 03/06/19 17:14 Dose: 150 mls/hr Infusion: 03/06/19 17:13 Dose: 150 mls/hr Admin: 03/06/19 16:00 Dose: 150 mls/hr Lorazepam (Ativan) 0.5 mg IV NOW ONE Stop: 03/06/19 15:54 Last Admin: 03/06/19 16:00 Dose: 0.5 mg Ondansetron HCl (Zofran) 4 mg IV NOW ONE Stop: 03/06/19 15:54 Last Admin: 03/06/19 16:00 Dose: 4 mg Vital Signs - 8 hr 03/06/19 14:15 03/06/19 15:31 Temperature 97.0 F L Pulse Rate 80 69 Respiratory Rate 20 16 Blood Pressure 161/85 H Blood Pressure [Right Arm] 142/65 H Pulse Oximetry 100 98 MDM - Chest Pain Medical Records Data Attestation: I reviewed the patient's medical records. Lab Data Attestation: I reviewed the patient's lab results. Result diagrams: 03/06/19 14:45 03/06/19 14:45 Lab Results 03/06/19 03/06/19 Range/Units 14:45 14:45 WBC 6.0 (4.5-11.0) X10^3/uL RBC 4.81 (4.0-5.2) X10^6/uL Hgb 14.3 (12.0-16.0) g/dL Hct 41.5 (36-46) % MCV 86.3 (80-100) fL MCH 29.7 (26-34) PG MCHC 34.4 (30-36) % RDW 13.9 (11.6-14.8) % Plt Count 239 (150-400) X10^3/uL Neut % (Auto) 75.1 H (50-75) % Lymph % (Auto) 18.3 L (25-40) % Warren % (Auto) 6.0 (3-14) % Eos % (Auto) 0.3 L (2-4) % Baso % (Auto) 0.3 (0-2) % Neut # (Auto) 4500 (5951-6954) /uL Lymph # (Auto) 1100 (9217-7206) /uL Warren # (Auto) 400 (0-900) /uL Eos # (Auto) 0 (0-450) /uL Baso # (Auto) 0 (0-100) /uL Sodium 141 (137-145) mmol/L Potassium 3.8 (3.4-5.1) mmol/L Chloride 104 (98-107) mmol/L Carbon Dioxide 29 (22-32) mmol/L BUN 8 (7-17) mg/dL Creatinine 0.80 (0.52-1.04) mg/dL Estimated GFR > 60.0 (>60) mL/min BUN/Creatinine Ratio 10.0 (6-22) Glucose 105 H (70-100) mg/dL Calcium 9.4 (8.4-10.2) mg/dL Total Bilirubin 0.6 (0.2-1.3) mg/dL AST 24 (14-36) IU/L ALT 24 (9-52) IU/L Alkaline Phosphatase 105 (38-126) U/L Total Creatine Kinase 37 (30-135) U/L CK-MB (CK-2) TNP CK-MB (CK-2) Rel Index TNP Troponin I < 0.012 (0.01-0.034) ng/mL Total Protein 8.0 (6.3-8.2) g/dL Albumin 4.4 (3.5-5.0) g/dL Globulin 3.6 (1.7-4.1) g/dL Albumin/Globulin Ratio 1.2 (1.0-2.8) Lipase 86 (23-300) U/L Urine Dip Bedside Urine Glucose Negative Bedside Urine Bilirubin - Negative Bedside Urine Ketone ++ [address]020 Bedside Urine Occult Blood - Negative Bedside Urine pH 7.5 Bedside Urine Protein - Negative Bedside Urine Urobilinogen - Negative Bedside Urine Nitrite - Negative Bedside Urine Leukocytes - Negative Esterase Imaging Data Chest x-ray: My impression: Unremarkable. Radiologist's impression: [address] [address] XRay Report Signed Patient: Riley Monique CMR#: [id number] : 1960Acct:[id number] Age/Sex: 58 / FDate of Service: 03/06/19 Loc: ED Accession Number: [id number] Procedure: XR chest 1V Ordering Provider: Ladan Vang MD PROCEDURE: XR CHEST 1V INDICATIONS: chest pain TECHNIQUE: One view of the chest was acquired. COMPARISON: None. FINDINGS: Surgical changes and devices: None. Lungs and pleura: Lungs are clear. No pleural effusions or pneumothorax. Mediastinum: Mediastinal contours appear normal. Heart size is normal. Bones and chest wall: No suspicious bony lesions. Overlying soft tissues appear unremarkable. IMPRESSION: Normal for age, source of current chest pain symptoms is not seen. Dictated by: Maxime Suazo M.D. on 03/06/2019 at 16:36 Approved by: Maxime Suazo M.D. on 03/06/2019 at 16:37 ECG Data Attestation: I personally reviewed and interpreted this ECG as follows: (See below) Interpretation: Twelve lead EKG performed 03/06/2019, as follows: Regular ventricular rhythm with a normal rate P waves present correlating well with QRS complexes QRS complexes narrow, with no evidence of conduction delay No ST segment elevation or depression No T-wave changes No ectopy No old EKG for comparison Interpretation: No significant changes; no dysrhythmia; no STEMI, as interpreted by ED MD. Discharge Plan Departure Patient Disposition: Home Clinical Impression: Heart palpitations, Anxiety Vomiting Qualifiers: Vomiting type: unspecified Vomiting Intractability: non-intractable Nausea presence: with nausea Qualified Code(s): R11.2 - Nausea with vomiting, unspecified Discharge Date/Time: 03/06/19 17:16 Interventions: ED Discharge Assessment Last Done: 03/06/19 16:50 Instructions: DI for Anxiety -- Adult, DI for Vomiting -- Adult Activity Restrictions/Additional Instructions: Your labs looked great. Your heart rate has been completely normal during the entire time you have been here and your rhythm has been steady. It is not clear why you are perceiving palpitations at time. It is common for the heart to occasionally have an irregular beat, and this is occasionally happening while you have been on the coppersmith helper, but rarely. There is no evidence of an emergent condition causing your symptoms. You may have picked up one of the many viruses that are still going around, and can cause you to have nausea and vomiting and feel ?off?. You do have many reasons to feel anxious, and a flare-up of your chronic anxiety may also be part of the problem. Please follow up with your primary doctor if your symptoms continue for more than the next week. Please take the nausea medicine, as needed. Prescriptions: New ondansetron 4 mg tablet,disintegrating 4 mg PO QID PRN (Reason: nausea and vomiting) Qty: 14 RF: 0 No Action loratadine 10 MG tablet 10 mg PO DAILY Qty: 0 RF: 0 sucralfate 100 mg/mL Suspension 1 dose PO BIDAC RF: 0 hydroxyzine pamoate 50 mg Capsule 50 mg PO BEDTIME PRN (Reason: Anxiety) RF: 0 pantoprazole 40 mg Tablet,Delayed Release (Dr/Ec) 40 mg PO BID RF: 0 buspirone 7.5 mg Tablet 7.5 mg PO BID RF: 0 azelastine 137 mcg (0.1 %) Aerosol,[place] 1 spray INTRANASAL DAILY RF: 0 propranolol 20 mg Tablet 10 mg PO BID RF: 0 ondansetron 4 mg Tablet,Disintegrating 4 mg PO PRN PRN (Reason: Nausea And Vomiting) RF: 0 pregabalin [Lyrica] 50 mg Capsule 50 mg PO TID RF: 0 Lidocaine/Antacid/ 1 dose PO QID PRN (Reason: Indigestion) RF: 0 Tums 1 tab PO PRN PRN (Reason: Indigestion) RF: 0 diphenhydramine HCl [Benadryl Allergy] 25 MG tablet 25 mg PO BEDTIME PRN (Reason: Sleep) RF: 0 ondansetron 4 mg tablet,disintegrating 4 mg PO BID-TID PRN (Reason: nausea and vomiting) Qty: 10 RF: 0 Truvada 200-300 mg tablet 1 tab PO DAILY Qty: 14 RF: 0 dolutegravir 50 mg tablet 50 mg PO DAILY Qty: 14 RF: 0 nifedipine 10 mg capsule 10 mg PO BID RF: 0 Referrals: Beena Calhoun PA-C [Primary Care Provider] -
[2019-03-06 15:36] LABS: Alanine Aminotransferase 24 IU/L (9-52); Albumin 4.4 g/dL (3.5-5.0); Albumin Globulin Ratio 1.2 (1.0-2.8); Alkaline Phosphatase 105 U/L (38-126); Aspartate Aminotransferase 24 IU/L (14-36); Bilirubin Total 0.6 mg/dL (0.2-1.3); Blood Urea Nitrogen 8 mg/dL (7-17); Calcium 9.4 mg/dL (8.4-10.2); Carbon Dioxide 29 mmol/L (22-32); Chloride 104 mmol/L (98-107); Creatine Kinase 37 U/L (30-135); Estimated Glomerular Filt Rate > 60.0 mL/min (>60); Globulin 3.6 g/dL (1.7-4.1); Glucose 105 mg/dL (70-100); HEMOLYSIS < 15 (0-50); Lipase 86 U/L (23-300); Potassium 3.8 mmol/L (3.4-5.1); Sodium 141 mmol/L (137-145)
--- NOTE | 2019-03-06 15:37 | ED_ITS ---
HPI - Chest Pain General Chief Complaint: Chest Pain Stated Complaint: Chest pain Time Seen by Provider: 03/06/19 14:37 Source: patient Mode of arrival: ambulatory Limitations: no limitations History of Present Illness HPI narrative: Patient comes to the emergency department complaining of just generally not feeling well. she states the symptoms started yesterday. Patient states she has been under a lot of stress with work and family issues, and also they have been doing some renovations at her work and she has been exposed to a lot of dust and fumes. Patient states that often at the end of the work week, s he feels as though she is somewhat run down and feeling well, but that she feels worse this time. She states that last night, she had pizza, she felt as though the cheese that stuck her esophagus. She states she has Perez's esophagus, this is not an uncommon problem for her. She states she felt as though she was having some reflux, and then became nauseated and vomited several times. She states she still felt sick when she went to bed last night, but that she was able to go to sleep. This morning, she woke still feeling nauseated, and has not eaten anything all day. She states that she has also felt as though her heart occasionally has palpitations. Patient also complains of stooling more frequently than usual, though she states her stools have been well formed. Patient does states she has a history of anxiety and has been feeling anxious lately. No fevers. No cough. No other complaints at this time. Patient states she has no history of cardiac issues. No shortness of breath. no DVT history. Related Data Home Medications Medication Instructions Recorded Confirmed loratadine 10 mg PO DAILY #0 12/04/16 01/25/19 Lidocaine/Antacid/ 1 dose PO QID PRN 12/27/18 01/25/19 Tums 1 tab PO PRN PRN 12/27/18 01/25/19 azelastine 1 spray INTRANASAL DAILY 12/27/18 01/25/19 buspirone 7.5 mg PO BID 12/27/18 01/25/19 diphenhydramine HCl [Benadryl 25 mg PO BEDTIME PRN 12/27/18 01/25/19 Allergy] hydroxyzine pamoate 50 mg PO BEDTIME PRN 12/27/18 01/25/19 ondansetron 4 mg PO PRN PRN 12/27/18 01/25/19 pantoprazole 40 mg PO BID 12/27/18 01/25/19 pregabalin [Lyrica] 50 mg PO TID 12/27/18 01/25/19 propranolol 10 mg PO BID 12/27/18 01/25/19 sucralfate 1 dose PO BIDAC 12/27/18 01/25/19 nifedipine 10 mg capsule 10 mg PO BID cap 01/25/19 01/25/19 Previous Rx's Medication Instructions Recorded ondansetron 4 mg PO BID-TID PRN #10 tab 12/27/18 dolutegravir 50 mg PO DAILY #14 tab 02/09/19 emtricitabine-tenofovir (TDF) 1 tab PO DAILY #14 tab 02/09/19 [Truvada] ondansetron 4 mg PO QID PRN #14 tab 03/06/19 Allergies Allergy/AdvReac Type Severity Reaction Status Date / Time adhesive tape [ADHESIVE TAPE] Allergy Mild latex tape Verified 03/06/19 16:00 codeine Allergy Mild Verified 03/06/19 16:00 barium iodide [BARIUM IODIDE] Allergy Unknown GI ISSUES Verified 03/06/19 16:00 latex [LATEX] Allergy Unknown Verified 03/06/19 16:00 NSAIDS (Non-Steroidal Allergy Unknown Verified 03/06/19 16:00 Anti-Inflamma [NSAIDS (NON-STEROIDAL ANTI-INFLAMMA] Review of Systems Constitutional Denies chills, Denies fever(s), Denies lethargy and Denies weakness Eyes Denies change in vision, Denies eye discharge, Denies irritation and Denies loss of vision ENT Ears, Nose, Mouth, and Throat: Denies change in voice, Denies neck pain and Denies sore throat Cardiovascular Reports chest pain, Denies irregular heart rhythm, Denies lightheadedness, Reports palpitations, Denies dyspnea, Denies dyspnea on exertion and Denies orthopnea Respiratory Denies cough, Denies dyspnea, Denies dyspnea on exertion and Denies wheezing Gastrointestinal Gastrointestinal: Denies abdominal pain, Denies change in bowel habits, Denies diarrhea, Reports nausea and Reports vomiting Genitourinary Denies hematuria, Denies flank pain, Denies urinary incontinence and Denies urinary urgency Musculoskeletal Denies neck pain Integumentary/Breasts Denies pruritus, Denies erythema, Denies rash and Denies wounds Neurologic Denies confusion, Denies loss of vision and Denies weakness Psychiatric Denies anxiety, Denies confusion, Denies depression, Denies homicidal ideation and Denies suicidal ideation Endocrine Reports palpitations Hematologic/Lymphatic Denies easy bruising Allergic/Immunologic Denies wheezing [facility] Medical History Obesity (BMI 30-39.9) (Chronic) Obstructive sleep apnea of adult (Chronic ~2009) Excessive daytime sleepiness (Inactive ~2009) Insomnia, unspecified (Chronic ~2009) Snoring (Inactive ~2009) Anxiety disorder (Chronic) Barretts esophagus (Chronic) Chronic post-traumatic stress disorder (PTSD) (Chronic) Gastroparesis (Chronic) Hiatal hernia (Chronic) Osteoarthritis (Chronic) Surgical History (Updated 01/25/19 @ 19:34 by HARPREET Borrero) History of third molar tooth extraction (Resolved) History of tubal ligation (Resolved) Status post hernia repair (Resolved) Status post laparoscopic cholecystectomy (Resolved) Status post laparoscopic supracervical hysterectomy (Resolved) Family History Other Bipolar disorder Depression Substance abuse Social History marital status: details: living in [place] household members: none lives independently: Yes caregiver/support person: No housing: house pets and animals: Yes (2 dogs, 2 cats) occupational status: employed Smoking Status: Former smoker alcohol intake: former substance use type: does not use additional social history: clean and sober x 30 years Family History Other Bipolar disorder Depression Substance abuse Social History marital status: details: living in [place] household members: none lives independently: Yes caregiver/support person: No housing: house pets and animals: Yes (2 dogs, 2 cats) occupational status: employed Smoking Status: Former smoker alcohol intake: former substance use type: does not use additional social history: clean and sober x 30 years Exam Initial Vital Signs Initial Vital Signs: Vital Signs Temperature 97.0 F L 03/06/19 14:15 Pulse Rate 80 03/06/19 14:15 Respiratory Rate 20 03/06/19 14:15 Blood Pressure 161/85 H 03/06/19 14:15 Pulse Oximetry 100 03/06/19 14:15 Const General: cooperative and well developed Nutritional Appearance: well nourished Orientation: alert, awake, oriented x3 and not confused [facility] Head: normocephalic and atraumatic Ears: external ears normal Nose: external nose normal and No nasal discharge Face and sinus: face symmetric and No dry mucous membranes Mouth: oral mucosae normal and moist mucous membranes Teeth and gingiva: dentition normal Eyes General: appearance normal, both eyes and all related structures Eyelids: eyelids normal Conjunctivae: conjunctivae normal Sclera: sclerae normal Pupils: PERRL EOM: EOM intact bilaterally Neck Neck: normal visual inspection, trachea midline, No lymphadenopathy, No midline deformity and No JVD Lymphatic: No lymphedema Chest Chest: normal inspection of the chest Resp Effort & Inspection: normal respiratory effort, able to speak in complete sentences, no respiratory distress and no use of accessory muscles Auscultation: clear to auscultation bilaterally, no rales, no rhonchi and no wheezes Cardio Rate: regular rate Rhythm: regular rhythm Heart Sounds: no click, no gallops, no murmurs and no rubs Pulses: normal peripheral pulses GI Inspection: non-distended Palpation: soft, no hepatosplenomegaly, No guarding, No pulsatile mass and No tender Back/Spine/Pelvis Back: No CVA tenderness Cervical Spine: cervical ROM normal and No pain with cervical ROM Thoracic/Lumbar Spine: thoracic and lumbar spine normal to inspection Skin General: no rashes or lesions noted, No jaundice and No petechiae Neuro General: alert, awake, oriented x3, gait normal and no focal motor deficits Speech: speech normal Extrem General: full ROM, no clubbing, cyanosis or edema, no pedal edema and no calf tenderness Psych Appearance: well kempt Mental Status: mental status grossly normal Attitude: cooperative Thought Content: normal and suicidality Judgment: judgment good Course Course Narrative: Patient was worked up with labs, EKG, and chest x-ray. She was found to be in a normal sinus rhythm on the monitor, even when she stated she felt as though she was having palpitations. Patient's workup was unremarkable. She was found to be feeling better after symptomatic treatment and observation in the emergency department. I did not find any emergent cause of the patient's symptoms. We have discussed the usual indications for return, as well as the need for follow-up with the patient's primary care physician. Patient expresses understanding. Orders Ordered: Discontinued Medications Sodium Chloride (Normal Saline 0.9%) 1,000 mls @ 150 mls/hr IV CONT GRISELDA Last Infusion: 03/06/19 17:14 Dose: 150 mls/hr Infusion: 03/06/19 17:14 Dose: 150 mls/hr Infusion: 03/06/19 17:13 Dose: 150 mls/hr Admin: 03/06/19 16:00 Dose: 150 mls/hr Lorazepam (Ativan) 0.5 mg IV NOW ONE Stop: 03/06/19 15:54 Last Admin: 03/06/19 16:00 Dose: 0.5 mg Ondansetron HCl (Zofran) 4 mg IV NOW ONE Stop: 03/06/19 15:54 Last Admin: 03/06/19 16:00 Dose: 4 mg Vital Signs - 8 hr 03/06/19 14:15 03/06/19 15:31 Temperature 97.0 F L Pulse Rate 80 69 Respiratory Rate 20 16 Blood Pressure 161/85 H Blood Pressure [Right Arm] 142/65 H Pulse Oximetry 100 98 MDM - Chest Pain Medical Records Data Attestation: I reviewed the patient's medical records. Lab Data Attestation: I reviewed the patient's lab results. Result diagrams: 03/06/19 14:45 03/06/19 14:45 Lab Results 03/06/19 03/06/19 Range/Units 14:45 14:45 WBC 6.0 (4.5-11.0) X10^3/uL RBC 4.81 (4.0-5.2) X10^6/uL Hgb 14.3 (12.0-16.0) g/dL Hct 41.5 (36-46) % MCV 86.3 (80-100) fL MCH 29.7 (26-34) PG MCHC 34.4 (30-36) % RDW 13.9 (11.6-14.8) % Plt Count 239 (150-400) X10^3/uL Neut % (Auto) 75.1 H (50-75) % Lymph % (Auto) 18.3 L (25-40) % Johnson % (Auto) 6.0 (3-14) % Eos % (Auto) 0.3 L (2-4) % Baso % (Auto) 0.3 (0-2) % Neut # (Auto) 4500 (8409-2894) /uL Lymph # (Auto) 1100 (5521-3904) /uL Johnson # (Auto) 400 (0-900) /uL Eos # (Auto) 0 (0-450) /uL Baso # (Auto) 0 (0-100) /uL Sodium 141 (137-145) mmol/L Potassium 3.8 (3.4-5.1) mmol/L Chloride 104 (98-107) mmol/L Carbon Dioxide 29 (22-32) mmol/L BUN 8 (7-17) mg/dL Creatinine 0.80 (0.52-1.04) mg/dL Estimated GFR > 60.0 (>60) mL/min BUN/Creatinine Ratio 10.0 (6-22) Glucose 105 H (70-100) mg/dL Calcium 9.4 (8.4-10.2) mg/dL Total Bilirubin 0.6 (0.2-1.3) mg/dL AST 24 (14-36) IU/L ALT 24 (9-52) IU/L Alkaline Phosphatase 105 (38-126) U/L Total Creatine Kinase 37 (30-135) U/L CK-MB (CK-2) TNP CK-MB (CK-2) Rel Index TNP Troponin I < 0.012 (0.01-0.034) ng/mL Total Protein 8.0 (6.3-8.2) g/dL Albumin 4.4 (3.5-5.0) g/dL Globulin 3.6 (1.7-4.1) g/dL Albumin/Globulin Ratio 1.2 (1.0-2.8) Lipase 86 (23-300) U/L Urine Dip Bedside Urine Glucose Negative Bedside Urine Bilirubin - Negative Bedside Urine Ketone ++ 40 Urine Specific [place] 1.020 Bedside Urine Occult Blood - Negative Bedside Urine pH 7.5 Bedside Urine Protein - Negative Bedside Urine Urobilinogen - Negative Bedside Urine Nitrite - Negative Bedside Urine Leukocytes - Negative Esterase Imaging Data Chest x-ray: My impression: Unremarkable. Radiologist's impression: [address] [address] XRay Report Signed Patient: Riley Monique CMR#: [id number] : 1960Acct:[id number] Age/Sex: 58 / FDate of Service: 03/06/19 Loc: ED Accession Number: [id number] Procedure: XR chest 1V Ordering Provider: Ladan Vang MD PROCEDURE: XR CHEST 1V INDICATIONS: chest pain TECHNIQUE: One view of the chest was acquired. COMPARISON: None. FINDINGS: Surgical changes and devices: None. Lungs and pleura: Lungs are clear. No pleural effusions or pneumothorax. Mediastinum: Mediastinal contours appear normal. Heart size is normal. Bones and chest wall: No suspicious bony lesions. Overlying soft tissues appear unremarkable. IMPRESSION: Normal for age, source of current chest pain symptoms is not seen. Dictated by: Maxime Suazo M.D. on 03/06/2019 at 16:36 Approved by: Maxime Suazo M.D. on 03/06/2019 at 16:37 ECG Data Attestation: I personally reviewed and interpreted this ECG as follows: (See below) Interpretation: Twelve lead EKG performed 03/06/2019, as follows: Regular ventricular rhythm with a normal rate P waves present correlating well with QRS complexes QRS complexes narrow, with no evidence of conduction delay No ST segment elevation or depression No T-wave changes No ectopy No old EKG for comparison Interpretation: No significant changes; no dysrhythmia; no STEMI, as interpreted by ED MD. Discharge Plan Departure Patient Disposition: Home Clinical Impression: Heart palpitations, Anxiety Vomiting Qualifiers: Vomiting type: unspecified Vomiting Intractability: non-intractable Nausea presence: with nausea Qualified Code(s): R11.2 - Nausea with vomiting, unspecified Discharge Date/Time: 03/06/19 17:16 Interventions: ED Discharge Assessment Last Done: 03/06/19 16:50 Instructions: DI for Anxiety -- Adult, DI for Vomiting -- Adult Activity Restrictions/Additional Instructions: Your labs looked great. Your heart rate has been completely normal during the entire time you have been here and your rhythm has been steady. It is not clear why you are perceiving palpitations at time. 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 There is no evidence of an emergent condition causing your symptoms. You may have picked up one of the many viruses that are still going around, and can cause you to have nausea and vomiting and feel ?off?. You do have many reasons to feel anxious, and a flare- up of your chronic anxiety may also be part of the problem. Please follow up with your primary doctor if your symptoms continue for more than the next week. Please take the nausea medicine, as needed. Prescriptions: New ondansetron 4 mg tablet,disintegrating 4 mg PO QID PRN (Reason: nausea and vomiting) Qty: 14 RF: 0 No Action loratadine 10 MG tablet 10 mg PO DAILY Qty: 0 RF: 0 sucralfate 100 mg/mL Suspension 1 dose PO BIDAC RF: 0 hydroxyzine pamoate 50 mg Capsule 50 mg PO BEDTIME PRN (Reason: Anxiety) RF: 0 pantoprazole 40 mg Tablet,Delayed Release (Dr/Ec) 40 mg PO BID RF: 0 buspirone 7.5 mg Tablet 7.5 mg PO BID RF: 0 azelastine 137 mcg (0.1 %) Aerosol,[place] 1 spray INTRANASAL DAILY RF: 0 propranolol 20 mg Tablet 10 mg PO BID RF: 0 ondansetron 4 mg Tablet,Disintegrating 4 mg PO PRN PRN (Reason: Nausea And Vomiting) RF: 0 pregabalin [Lyrica] 50 mg Capsule 50 mg PO TID RF: 0 Lidocaine/Antacid/ 1 dose PO QID PRN (Reason: Indigestion) RF: 0 Tums 1 tab PO PRN PRN (Reason: Indigestion) RF: 0 diphenhydramine HCl [Benadryl Allergy] 25 MG tablet 25 mg PO BEDTIME PRN (Reason: Sleep) RF: 0 ondansetron 4 mg tablet,disintegrating 4 mg PO BID-TID PRN (Reason: nausea and vomiting) Qty: 10 RF: 0 Truvada 200-300 mg tablet 1 tab PO DAILY Qty: 14 RF: 0 dolutegravir 50 mg tablet 50 mg PO DAILY Qty: 14 RF: 0 nifedipine 10 mg capsule 10 mg PO BID RF: 0 Referrals: Beena Calhoun PA-C [Primary Care Provider] -
[2019-03-06 15:47] LABS: Troponin I < 0.012 ng/mL (0.01-0.034)
[2019-03-06 16:00] VITALS: BP 102/43; PULSE 62; RESP 17
[2019-03-06] MEDS: ONDANSETRON 4 MG/2 ML INJ IV (16:00)
[2019-03-06] MEDS: SODIUM CHLORIDE 0.9% 1,000 ML 150 ML IV (16:00)
[2019-03-06] MEDS: LORazepam 2 MG/ML SYRINGE 0.5 MG IV (16:00)
[2019-03-06 16:30] VITALS: BP 102/43; PULSE 64; O2SAT 94
[2019-03-06 16:50] VITALS: BP 113/45; PULSE 65; RESP 17; O2SAT 99
== END 2019-03-06 17:16 | disposition home or self-care (01) ==
PROVIDERS: Emergency Provider Emergency Medicine; PCP Physician Assistant
DX: R00.2 Palpitations (principal); F41.9 Anxiety disorder, unspecified; R11.2 Nausea with vomiting, unspecified
CPT/HCPCS: 36591; 71045; 80053; 81003; 82550; 83690; 84484; 85025; 93005; 93010; 96361; 96374; 96375; 99284; 99285; J2060; J2405

== ENCOUNTER → 2024-11-25 16:15 | Outpatient (CLI) | payer OTHER, SELFPAY ==
[2024-11-25 16:45] LABS: Add Manual Diff / Slide Review NO; Basophils Absolute Auto 0 /uL (0-100); Basophils Percent Auto 0.6 % (0-2); Eosinophils Absolute Auto 100 /uL (0-450); Eosinophils Percent Auto 1.1 % (2-4); Hematocrit 42.2 % (36-46); Hemoglobin 14.1 g/dL (12.0-16.0); Lymphocytes Absolute Auto 1400 /uL (1100-4500); Lymphocytes Percent Auto 20.4 % (25-40); Mean Corpuscular HGB Conc 33.3 % (30-36); Mean Corpuscular Hemoglobin 30.5 PG (26-34); Mean Corpuscular Volume 91.6 fL (80-100); Monocytes Absolute Auto 500 /uL (0-900); Monocytes Percent Auto 7.2 % (3-14); Neutrophils Absolute Auto 4700 /uL (1500-7000); Neutrophils Percent Auto 70.7 % (50-75); Platelet Count 231 X10^3/uL (150-400); Red Blood Cell Count 4.61 X10^6/uL (4.0-5.2); Red Cell Distribution Width 13.8 % (11.6-14.8); White Blood Cell Count 6.6 X10^3/uL (4.5-11.0)
[2024-11-25 17:05] LABS: Cholesterol 265 mg/dL (140-199); HDL Cholesterol 69 mg/dL (40-60); Hemoglobin A1C% w Est Avg Glu 5.4 % (4.0-6.0); LDL Cholesterol Calculated 170 mg/dL (<100); Magnesium 1.9 mg/dL (1.6-2.3); Triglycerides 131 mg/dL (35-150)
[2024-11-26 23:26] LABS: Vitamin D 25 Hydroxy (D3) 40.1 ng/mL (30.0-100.0)
== END ==
LOC: LAB 16:17
PROVIDERS: Registered Nurse; PCP Physician Assistant; Referring Provider Physician Assistant; Visit Provider Physician Assistant
DX: Z13.1 Encounter for screening for diabetes mellitus (principal); R25.2 Cramp and spasm; E78.2 Mixed hyperlipidemia; Z86.39 Personal history of other endocrine, nutritional and metabolic disease
CPT/HCPCS: 36415; 80061; 82306; 83036; 83735; 85025

== ENCOUNTER → 2025-02-28 10:35 | Outpatient (CLI) | payer OTHER, SELFPAY ==
--- NOTE | 2025-02-28 10:39 | DI.RAD.S_ITS ---
PROCEDURE: XR CERVICAL SPINE 2V OR 3V INDICATIONS: BACK PAIN TECHNIQUE: Two views (s) of the cervical spine were acquired. COMPARISON: None. FINDINGS: Cervical spine curvature and alignment: Normal. Bones: There are no osseous abnormalities. Disc spaces: Mild degenerative disc disease C4-5 C5-6 and mild C6-7 degenerative disc disease. There is marked ossification anterior longitudinal ligament at C4-5 and 6. Soft tissues: No soft tissue swelling, calcification or mass. 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 This could impinge the posterior cervical esophagus predisposing to dysphagia Dictated by: Cedric Laguna M.D. on 03/01/2025 at 9:51 Approved by: Cedric Laguna M.D. on 03/01/2025 at 9:53
--- NOTE | 2025-02-28 10:39 | DI.RAD.S_ITS ---
PROCEDURE: XR LUMBAR SPINE 2-3V INDICATIONS: BACK PAIN TECHNIQUE: Two views of the lumbar spine were acquired. COMPARISON: None. FINDINGS: Lumbar spine curvature and alignment: Normal. Bones: There are no osseous abnormalities. Disc spaces: Moderate L5-S1 degenerative disc facet disease noted. Soft tissues: No soft tissue swelling, calcification or mass. IMPRESSION: Moderate L5-S1 degenerative disc and facet disease Dictated by: Cedric Laguna M.D. on 03/01/2025 at 9:49 Approved by: Cedric Laguna M.D. on 03/01/2025 at 9:50
--- NOTE | 2025-02-28 10:39 | DI.RAD.S_ITS ---
PROCEDURE: XR SHOULDER LT MIN 2V INDICATIONS: SHOULDER PAIN TECHNIQUE: Three views of the left shoulder were acquired. COMPARISON: None. FINDINGS: Bones: Prominent enthesophyte projects from the inferior acromion Acromioclavicular and glenohumeral joints: Mild acromioclavicular degeneration appreciated. Glenohumeral joint is normal Soft tissues: No soft tissue swelling, calcification or mass. IMPRESSION: Mild acromioclavicular degeneration and enthesophyte projecting from the inferior acromion predisposing to extrinsic rotator cuff impingement Dictated by: Cedric Laguna M.D. on 03/01/2025 at 9:50 Approved by: Cedric Laguna M.D. on 03/01/2025 at 9:51
== END ==
PROVIDERS: PCP Nurse Practitioner Family; Referring Provider Nurse Practitioner Family; Visit Provider Nurse Practitioner Family
DX: M51.370 Other intervertebral disc degeneration, lumbosacral region with discogenic back pain only (principal); M47.817 Spondylosis without myelopathy or radiculopathy, lumbosacral region; M19.012 Primary osteoarthritis, left shoulder; M50.321 Other cervical disc degeneration at C4-C5 level; M25.512 Pain in left shoulder
CPT/HCPCS: 72040; 72100; 73030

== ENCOUNTER → 2025-05-04 08:34 | Outpatient (CLI) | payer OTHER, SELFPAY | PROVIDERS: PCP Nurse Practitioner Family; Referring Provider Nurse Practitioner Family; Visit Provider Nurse Practitioner Family | DX: J45.20 Mild intermittent asthma, uncomplicated (principal); Z87.891 Personal history of nicotine dependence; R94.2 Abnormal results of pulmonary function studies | CPT/HCPCS: 94060; 94726; 94729 ==

== ENCOUNTER → 2025-09-08 10:08 | Outpatient (CLI) | payer OTHER, SELFPAY ==
[2025-09-08 11:26] LABS: Add Manual Diff / Slide Review NO; Hematocrit 38.7 % (36-46); Hemoglobin 13.0 g/dL (12.0-16.0); Lymphocytes Absolute Auto 1300 /uL (1100-4500); Mean Corpuscular HGB Conc 33.6 % (30-36); Mean Corpuscular Hemoglobin 29.1 PG (26-34); Mean Corpuscular Volume 86.8 fL (80-100); Platelet Count 219 X10^3/uL (150-400)
[2025-09-08 12:01] LABS: Alanine Aminotransferase 16 IU/L (<35); Albumin 3.8 g/dL (3.5-5.0); Albumin Globulin Ratio 1.3 (1.0-2.8); Alkaline Phosphatase 96 U/L (38-126); Blood Urea Nitrogen 8 mg/dL (7-17); Calcium 8.9 mg/dL (8.4-10.2); Carbon Dioxide 25 mmol/L (22-32); Chloride 106 mmol/L (98-107); Cholesterol 212 mg/dL (140-199); Estimated Glomerular Filt Rate > 60 mL/min (>60); Globulin 2.9 g/dL (1.7-4.1); Glucose 88 mg/dL (70-99); HDL Cholesterol 58 mg/dL (40-60); HEMOLYSIS < 15 (0-50); Potassium 4.3 mmol/L (3.4-5.1); Sodium 138 mmol/L (137-145); Total Protein 6.7 g/dL (6.3-8.2); Triglycerides 152 mg/dL (35-150)
== END ==
PROVIDERS: PCP Nurse Practitioner Family; Referring Provider Nurse Practitioner Family; Visit Provider Nurse Practitioner Family
DX: E78.5 Hyperlipidemia, unspecified (principal); I10 Essential (primary) hypertension
CPT/HCPCS: 36415; 80053; 80061; 85025